=== PATIENT | female | born 1970 | race Caucasian/White ===

== ENCOUNTER 2019-07-23 07:48 | Emergency (ER) | payer BC ==
--- NOTE | 2019-07-23 08:06 | PDOC ---
History of Present Illness - General Chief Complaint: Pain Stated Complaint: LEFT LOWER BACK PAIN Time Seen by Provider: 07/23/19 07:50 - History of Present Illness Initial Comments: 07/23/19 08:37 49 F with no significant PMH presents to ED with 1 day of L flank pain. Pt reports having an aching pain that started yesterday. She states it felt like a muscle soreness but denies any injuries or heavy lifting. This morning in the shower, the pain acutely worsened. She reports 10/10 pain radiating from her L flank towards her groin. The pain has since subsided but pt notes that she occasionally will get waves of severe pain. Endorses nausea without vomiting. Denies F/C. Denies abdominal pain. Denies diarrhea/constipation. No prior h/o kidney stones or pyelo. Past History - Past Medical History Allergies/Adverse Reactions: Allergies Allergy/AdvReac Type Severity Reaction Status Date / Time amoxicillin [From Augmentin] Allergy Verified 07/23/19 07:59 clavulanic acid Allergy Rash Verified 07/23/19 07:59 [From Augmentin] Home Medications: Ambulatory Orders Acetaminophen [Tylenol 8 Hour] 1,950 500s PO ONCE PRN 07/23/19 Review of Systems - Review of Systems Comments:: 07/23/19 08:38 "GENERAL/CONSTITUTIONAL: No fever or chills. No weakness. HEAD, EYES, EARS, NOSE AND THROAT: No change in vision. No ear pain or discharge. No sore throat. CARDIOVASCULAR: No chest pain, no shortness of breath, no loss of consciousness RESPIRATORY: No cough, wheezing, or hemoptysis. GASTROINTESTINAL: No nausea, vomiting, diarrhea or constipation. GENITOURINARY: + L flank pain. No dysuria, frequency, or change in urination. MUSCULOSKELETAL: No joint or muscle swelling or pain. No neck or back pain. SKIN: No rash NEUROLOGIC: No vertigo, no change in strength/sensation. ENDOCRINE: No increased thirst. No abnormal weight change. HEMATOLOGIC/LYMPHATIC: No anemia, easy bleeding, or history of blood clots. ALLERGIC/IMMUNOLOGIC: No hives or skin allergy. *Physical Exam - Physical Exam 07/23/19 08:39 "GENERAL: Awake, alert, and fully oriented, in no acute distress. HEAD: No signs of trauma EYES: PERRLA, EOMI, sclera anicteric, conjunctiva clear ENT: Auricles normal inspection, hearing grossly normal, nares patent, oropharynx clear without exudates. Moist mucosa NECK: Nontender, no stepoffs, Normal ROM, supple, no lymphadenopathy, JVD, or masses LUNGS: Breath sounds equal, clear to auscultation bilaterally. No wheezes, and no crackles HEART: Regular rate and rhythm, normal S1 and S2, no murmurs, rubs or gallops BACK: + L CVAT ABDOMEN: Soft, nontender, normoactive bowel sounds. No guarding, no rebound. No masses EXTREMITIES: Normal range of motion, no edema. No clubbing or cyanosis. No cords, erythema, or tenderness NEUROLOGICAL: Cranial nerves II through XII intact. 5/5 strength and sensation in all extremities, Normal speech, normal gait, normal cerebellar function SKIN: Warm, Dry, normal turgor, no rashes or lesions noted. ED Treatment Course - LABORATORY CBC & Chemistry Diagram: 07/23/19 08:42 07/23/19 08:42 Medical Decision Making - Medical Decision Making 07/23/19 08:39 49 F with L flank pain. Suspect renal colic. Pt with completely benign abdominal exam. No midline back pain to suggest spinal pathology. - Labs, UA - CTAP - IVF, pain control 07/23/19 09:31 Labs, UA, and CT all unremarkable Pt reassessed - states pain has resolved completely Pt is well appearing, with normal vitals. Clinically stable for DC at this time. I discussed the physical exam findings, ancillary test results and final diagnoses with the patient. I answered all of the patient's questions. The patient was satisfied with the care received and felt comfortable with the discharge plan and treatment plan. The patient agrees to follow up with the primary care physician within 24-72 hours. Discharge - Discharge Information Problems reviewed: Yes Clinical Impression/Diagnosis: Flank pain Disposition: HOME - Follow up/Referral - Patient Discharge Instructions Patient Printed Discharge Instructions: DI for Flank Pain Additional Instructions: Your bloodwork and CT scan were all normal today. However, this does not rule out all serious medical problems. Follow up with your primary doctor as soon as possible. You should notify your doctor that you have a cyst on your right kidney that needs to be monitored. If you experience worsening pain, fevers, vomiting, or any other concerning symptoms, return to the ER immediately. - Post Discharge Activity
[2019-07-23 08:07] VITALS: TEMP 98.3; BMI 49.2
[2019-07-23] MEDS ORDERED: ONDANSETRON 4 MG TABLET PO ONE (08:18)
[2019-07-23] MEDS ORDERED: KETOROLAC TROMETHAMINE 30 MG/1 ML VIAL IVPUSH ONE (08:18)
[2019-07-23] MEDS ORDERED: SODIUM CHLORIDE 1,000 ML IV STA (08:18)
[2019-07-23 08:26] LABS: EPITHELIAL CELLS MANY /hpf
[2019-07-23] MEDS ORDERED: ONDANSETRON 4 MG/2 ML VIAL ONE (08:30)
[2019-07-23] MEDS ORDERED: KETOROLAC TROMETHAMINE 15 MG/ML VIAL ONE (08:30)
[2019-07-23 09:03] LABS: BASO % 0.6 % (0-2.0); EOS % 3.6 % (0-4.5); HEMATOCRIT 43.7 % (32.4-45.2); HEMOGLOBIN 13.9 GM/dl (10.7-15.3); LYMPH % 26.3 % (8-40); MCH 29.7 pg (25.7-33.7); MCHC 31.8 g/dl (32.0-36.0); MEAN CELL VOLUME 93.5 fl (80-96); MEAN PLT VOLUME 10.6 fl (7.5-11.1); MONO % 6.5 % (3.8-10.2); PLATELET COUNT 258 K/MM3 (134-434); RBC 4.68 M/mm3 (3.60-5.2); RDW 13.3 % (11.6-15.6); WHITE BLOOD COUNT 6.7 K/mm3 (4.0-10.8)
[2019-07-23 09:12] LABS: ALBUMIN 3.7 g/dl (3.4-5.0); BILIRUBIN,TOTAL 0.4 mg/dl (0.2-1); CALCIUM 8.9 mg/dl (8.5-10); CREATININE 0.9 mg/dl (0.55-1.3); POTASSIUM 4.3 mmol/L (3.5-5.1); TOT PROT 7.7 g/dl (6.4-8.2)
[2019-07-23 09:53] VITALS: BP 135/77; PULSE 58
== END 2019-07-23 09:54 | disposition home or self-care (01) ==
LOC: FER 07:48
PROC: 3E0333Z Introduction of Anti-inflammatory into Peripheral Vein, Percutaneous Approach (ICD-10-PCS; principal; 2019-07-23)
DX: R10.32 Left lower quadrant pain (principal); Z88.8 Allergy status to other drugs, medicaments and biological substances
CPT/HCPCS: 36415; 74176-TC; 80053; 81003; 81015; 83690; 84703; 85025; 87086; 99283-25

== ENCOUNTER 2021-07-11 15:16 | Inpatient (IN) | payer BC ==
[2021-07-11] MEDS ORDERED: SODIUM CHLORIDE 0.9% 500 ML INFUS.BAG IV ONE (17:23)
[2021-07-11] MEDS ORDERED: MAG HYDROX/AL HYDROX/SIMETH 30 ML UNIT-DOSE CUP PO ONE (17:23)
[2021-07-11] MEDS ORDERED: FAMOTIDINE 20 MG/50 ML IVPB 20 MG/50 ML MG IVPB ONE ×2 (17:23→17:30)
[2021-07-11] MEDS ORDERED: ACETAMINOPHEN 1000 MG/100 ML BAG IVPB ONE (17:23)
[2021-07-11] MEDS ORDERED: MAG HYDROX/AL HYDROX/SIMETH 30 ML UNIT-DOSE CUP ONE (17:30)
[2021-07-11] MEDS ORDERED: ACETAMINOPHEN INJECTION 100 ML IVPB ONE (17:30)
[2021-07-11 18:26] LABS: INR 1.37 (0.83-1.09); PROTHROMBIN TIME (PATIENT) 15.4 SEC (9.7-13.0)
[2021-07-11 18:32] LABS: BASO % 0.4 % (0-2.0); EOS % 1.4 % (0-4.5); HEMATOCRIT 40.9 % (32.4-45.2); HEMOGLOBIN 13.7 GM/dL (10.7-15.3); MCH 30.1 pg (25.7-33.7); MCHC 33.5 g/dl (32.0-36.0); MEAN CELL VOLUME 89.9 fl (80-96); MEAN PLT VOLUME 10.5 fl (7.5-11.1); MONO % 7.7 % (3.8-10.2); NEUT % 78.5 % (42.8-82.8); PLATELET COUNT 236 10^3/uL (134-434); RBC 4.55 M/mm3 (3.60-5.2); RDW 13.5 % (11.6-15.6); WHITE BLOOD COUNT 14.8 K/mm3 (4.0-10.0)
[2021-07-11 18:42] LABS: CHLORIDE 102 mmol/L (98-107); SODIUM 139 mmol/L (136-145)
[2021-07-11 18:44] LABS: ANION GAP 9 MMOL/L (8-16); BLOOD UREA NITROGEN 12.5 mg/dL (7-18); CALCIUM 9.1 mg/dL (8.5-10.1); CO2 27 mmol/L (21-32)
[2021-07-11 18:45] LABS: GLUCOSE,RANDOM 88 mg/dL (74-106)
[2021-07-11 18:47] LABS: SGPT/ALT 10 U/L (13-61)
[2021-07-11 18:48] LABS: SGOT/AST 20 U/L (15-37)
[2021-07-11 18:49] LABS: BILIRUBIN,TOTAL 0.6 mg/dL (0.2-1)
[2021-07-11 18:50] LABS: ALK PHOS 88 U/L (45-117)
[2021-07-11] MEDS ORDERED: HEPARIN NA (PORCINE) 5,000 UNITS/ML 1ML VIAL IVPUSH PRN ×2 (19:21)
[2021-07-11] MEDS ORDERED: HEPARIN - 25,000 UNIT in SODIUM CHLORIDE 495 ML IV SCH (19:30)
[2021-07-11] MEDS ORDERED: ENOXAPARIN NA (PORCINE) 120 MG/0.8 ML DISP.SYRIN SQ SCH (22:00)
[2021-07-12 01:14] VITALS: BMI 48.7
[2021-07-12] MEDS: LACTATED RINGERS SOLUTION 1,000 ML/1,000 ML INFUS.BAG IV SCH ×2 (03:15→21:46)
[2021-07-12 08:39] LABS: BLOOD UREA NITROGEN 12.3 mg/dL (7-18); MAGNESIUM 2.5 mg/dL (1.8-2.4)
[2021-07-12 08:40] LABS: CALCIUM 8.3 mg/dL (8.5-10.1)
[2021-07-12 08:41] LABS: PHOSPHOROUS 2.6 mg/dL (2.5-4.9)
[2021-07-12 08:43] LABS: BILIRUBIN,TOTAL 0.5 mg/dL (0.2-1); TOT PROT 6.7 g/dl (6.4-8.2)
[2021-07-12 08:44] LABS: CREATININE 0.9 mg/dL (0.55-1.3)
[2021-07-12 08:45] LABS: ALBUMIN 2.2 g/dl (3.4-5.0)
[2021-07-12 09:43] LABS: HEMATOCRIT 35.8 % (32.4-45.2); HEMOGLOBIN 11.5 GM/dL (10.7-15.3); MCH 29.2 pg (25.7-33.7); MCHC 32.2 g/dl (32.0-36.0); MEAN CELL VOLUME 90.7 fl (80-96); MEAN PLT VOLUME 11.3 fl (7.5-11.1); PLATELET COUNT 209 10^3/uL (134-434); RBC 3.94 M/mm3 (3.60-5.2); RDW 13.5 % (11.6-15.6); WHITE BLOOD COUNT 13.3 K/mm3 (4.0-10.0)
[2021-07-12] MEDS ORDERED: ENOXAPARIN NA (PORCINE) 120 MG/0.8 ML DISP.SYRIN SQ SCH ×2 (10:15→22:00)
[2021-07-12] MEDS ORDERED: ENOXAPARIN 100 MG, ENOXAPARIN 40 MG SQ ONE (10:30)
[2021-07-12] MEDS ORDERED: ENOXAPARIN NA (PORCINE) 100 MG/1 ML DISP.SYRIN SQ ONE ×2 (11:16→21:28)
[2021-07-12] MEDS ORDERED: ENOXAPARIN NA (PORCINE) 40 MG/0.4 ML DISP.SYRIN SQ ONE ×2 (11:17→21:28)
[2021-07-12] MEDS: PANTOPRAZOLE SODIUM 40 MG VIAL IVPUSH SCH (11:20)
[2021-07-12] MEDS: ENOXAPARIN 100 MG, ENOXAPARIN 40 MG SQ SCH (21:44)
[2021-07-12] MEDS: MUPIROCIN 2% TOPICAL OINTMENT FOR DECOLONIZATION NS SCH (21:44)
[2021-07-12] MEDS ORDERED: CHLORHEXIDINE GLUCONATE 4% CLEANSER FOR DECOLONIZATION TP SCH (22:00)
[2021-07-12] MEDS ORDERED: guaiFENesin 200 MG/10 ML 10 ML UNIT-DOSE CUPS PO ONE (22:10)
[2021-07-13 07:26] LABS: BASO % 0.8 % (0-2.0); EOS % 4.7 % (0-4.5); HEMATOCRIT 35.4 % (32.4-45.2); HEMOGLOBIN 11.4 GM/dL (10.7-15.3); LYMPH % 21.7 % (8-40); MCH 29.3 pg (25.7-33.7); MCHC 32.3 g/dl (32.0-36.0); MEAN CELL VOLUME 90.8 fl (80-96); MEAN PLT VOLUME 10.8 fl (7.5-11.1); NEUT % 65.8 % (42.8-82.8); PLATELET COUNT 221 10^3/uL (134-434); RDW 13.3 % (11.6-15.6); WHITE BLOOD COUNT 10.7 K/mm3 (4.0-10.0)
[2021-07-13 07:49] LABS: BLOOD UREA NITROGEN 12.7 mg/dL (7-18); CALCIUM 8.3 mg/dL (8.5-10.1)
[2021-07-13 07:50] LABS: ALBUMIN 2.5 g/dl (3.4-5.0); MAGNESIUM 2.3 mg/dL (1.8-2.4)
[2021-07-13 07:53] LABS: PHOSPHOROUS 3.5 mg/dL (2.5-4.9)
[2021-07-13 07:55] LABS: BILIRUBIN,TOTAL 0.6 mg/dL (0.2-1); TOT PROT 6.4 g/dl (6.4-8.2)
[2021-07-13] MEDS ORDERED: ENOXAPARIN NA (PORCINE) 40 MG/0.4 ML DISP.SYRIN SQ ONE (10:15)
[2021-07-13] MEDS ORDERED: ENOXAPARIN NA (PORCINE) 100 MG/1 ML DISP.SYRIN SQ ONE (10:15)
[2021-07-13] MEDS: ENOXAPARIN 100 MG, ENOXAPARIN 40 MG SQ SCH (10:26)
[2021-07-13] MEDS: PANTOPRAZOLE SODIUM 40 MG VIAL IVPUSH SCH (10:27)
[2021-07-13] MEDS: MUPIROCIN 2% TOPICAL OINTMENT FOR DECOLONIZATION NS SCH (12:27)
[2021-07-13] MEDS: guaiFENesin/D-METHORPHAN HB 10 ML UNIT-DOSE CUPS PO PRN ×2 (15:46→22:46)
[2021-07-13] MEDS ORDERED: CHLORHEXIDINE GLUCONATE 4% CLEANSER FOR DECOLONIZATION TP SCH (22:00)
[2021-07-13] MEDS ORDERED: MUPIROCIN 2% TOPICAL OINTMENT FOR DECOLONIZATION NS SCH (22:00)
[2021-07-13] MEDS: APIXABAN 5 MG TABLET PO SCH (22:40)
[2021-07-14] MEDS: guaiFENesin/D-METHORPHAN HB 10 ML UNIT-DOSE CUPS PO PRN (05:37)
[2021-07-14 08:17] LABS: HEMATOCRIT 34.8 % (32.4-45.2); HEMOGLOBIN 11.7 GM/dL (10.7-15.3); MCH 30.1 pg (25.7-33.7); MCHC 33.6 g/dl (32.0-36.0); MEAN CELL VOLUME 89.5 fl (80-96); MEAN PLT VOLUME 10.1 fl (7.5-11.1); PLATELET COUNT 242 10^3/uL (134-434); RBC 3.89 M/mm3 (3.60-5.2); RDW 13.4 % (11.6-15.6); WHITE BLOOD COUNT 9.5 K/mm3 (4.0-10.0)
[2021-07-14 09:09] LABS: ALBUMIN 2.4 g/dl (3.4-5.0); BLOOD UREA NITROGEN 8.6 mg/dL (7-18); CALCIUM 8.5 mg/dL (8.5-10.1)
[2021-07-14 09:12] LABS: CREATININE 0.8 mg/dL (0.55-1.3)
[2021-07-14 09:14] LABS: BILIRUBIN,TOTAL 0.5 mg/dL (0.2-1); TOT PROT 6.7 g/dl (6.4-8.2)
[2021-07-14] MEDS: MUPIROCIN 2% TOPICAL OINTMENT FOR DECOLONIZATION NS SCH (09:51)
[2021-07-14] MEDS: APIXABAN 5 MG TABLET PO SCH ×2 (09:56→21:53)
[2021-07-14] MEDS: PANTOPRAZOLE SODIUM 40 MG VIAL IVPUSH SCH (09:56)
[2021-07-14] MEDS ORDERED: guaiFENesin/D-M SUGAR-FREE/ACLHOL-FREE 5 ML UNIT DOSE PO PRN (11:00)
[2021-07-14] MEDS: LACTATED RINGERS SOLUTION 1,000 ML/1,000 ML INFUS.BAG IV SCH ×2 (21:53)
[2021-07-15 08:34] LABS: HEMATOCRIT 36.7 % (32.4-45.2); HEMOGLOBIN 11.9 GM/dL (10.7-15.3); MCH 29.4 pg (25.7-33.7); MCHC 32.4 g/dl (32.0-36.0); MEAN CELL VOLUME 90.7 fl (80-96); MEAN PLT VOLUME 10.3 fl (7.5-11.1); PLATELET COUNT 272 10^3/uL (134-434); RBC 4.04 M/mm3 (3.60-5.2); RDW 13.4 % (11.6-15.6); WHITE BLOOD COUNT 8.8 K/mm3 (4.0-10.0)
[2021-07-15 09:06] LABS: CALCIUM 8.5 mg/dL (8.5-10.1)
[2021-07-15 09:07] LABS: ALBUMIN 2.3 g/dl (3.4-5.0); BLOOD UREA NITROGEN 7.9 mg/dL (7-18)
[2021-07-15 09:10] LABS: CREATININE 0.9 mg/dL (0.55-1.3)
[2021-07-15 09:12] LABS: BILIRUBIN,TOTAL 0.5 mg/dL (0.2-1); TOT PROT 6.6 g/dl (6.4-8.2)
[2021-07-15] MEDS: PANTOPRAZOLE SODIUM 40 MG VIAL IVPUSH SCH (10:44)
[2021-07-15] MEDS: APIXABAN 5 MG TABLET PO SCH ×2 (10:44→22:54)
[2021-07-15] MEDS ORDERED: PT OWN MED DRAWER 7, Y5N ONE (22:49)
[2021-07-16 09:07] LABS: HEMOGLOBIN 11.8 GM/dL (10.7-15.3); MCH 29.9 pg (25.7-33.7); MCHC 32.8 g/dl (32.0-36.0); PLATELET COUNT 291 10^3/uL (134-434); RBC 3.96 M/mm3 (3.60-5.2); RDW 13.6 % (11.6-15.6); WHITE BLOOD COUNT 9.4 K/mm3 (4.0-10.0)
[2021-07-16] MEDS ORDERED: PT OWN MED DRAWER 7, Y5N ONE (10:05)
[2021-07-16] MEDS: APIXABAN 5 MG TABLET PO SCH (10:11)
[2021-07-16] MEDS: PANTOPRAZOLE SODIUM 40 MG VIAL IVPUSH SCH (10:12)
[2021-07-16] MEDS ORDERED: ACETAMINOPHEN 325 MG TABLET (FP) PO PRN (13:37)
[2021-07-16 14:41] VITALS: BP 120/60; PULSE 83; TEMP 98.7
[2021-07-16] MEDS: LACTATED RINGERS SOLUTION 1,000 ML/1,000 ML INFUS.BAG IV SCH (15:53)
[2021-07-16] MEDS ORDERED: APIXABAN 5 MG TABLET PO STA (16:24)
== END 2021-07-16 19:22 | disposition home or self-care (01) | DRG 176 ==
LOC: JER 15:16 → JERBED 20:20 → JICU 07-12 00:42 → J7W 07-13 17:37
PROVIDERS: ADMIT Internal Medicine; ATTEND Internal Medicine
DX: I26.99 Other pulmonary embolism without acute cor pulmonale (principal); Z68.42 Body mass index [BMI] 45.0-49.9, adult; I82.432 Acute embolism and thrombosis of left popliteal vein; E66.01 Morbid (severe) obesity due to excess calories; G47.33 Obstructive sleep apnea (adult) (pediatric)
CPT/HCPCS: 36415; 71045-TC-FY; 71275-TC; 80053; 82550; 82553; 83735; 84100; 84484; 85025; 85027; 85610; 85730; 93005; 93010; 93306-TC; 93970-TC; 94010; 94761; 99285-25; C9803-CS; J1644; Q9967; U0003; U0005

== ENCOUNTER 2023-11-25 16:36 | Emergency (ER) | payer BC ==
[2023-11-25 16:46] VITALS: BP 142/89; PULSE 91; RESP 20; TEMP 98.3; BMI 51.6
[2023-11-25 17:29] LABS: HEMATOCRIT 44.3 % (32.4-45.2); HEMOGLOBIN 14.2 G/dL (10.7-15.3); MCHC 32.1 g/dl (32.0-36.0); MEAN CELL VOLUME 93.5 fl (80-96); MEAN PLT VOLUME 9.7 fl (7.5-11.1); PLATELET COUNT 209.9 10^3/uL (134-434); RBC 4.74 10^6/uL (3.60-5.2); RDW 14.1 % (11.6-15.6); WHITE BLOOD COUNT 11.2 10^3/uL (4.0-10.8)
[2023-11-25 17:42] LABS: ALBUMIN 3.7 g/dl (3.4-5.0); BILIRUBIN,TOTAL 0.4 mg/dl (0.2-1); TOT PROT 6.9 g/dl (6.4-8.2)
[2023-11-25 18:41] LABS: PLATELET ESTIMATE ADEQUATE
[2023-11-25] MEDS ORDERED: ACETAMINOPHEN INJECTION 100 ML IVPB ONE (19:13)
[2023-11-25] MEDS: ACETAMINOPHEN 1000 MG/100 ML BAG IVPB ONE (19:16)
[2023-11-25] MEDS ORDERED: DALBAVANCIN HCL 500 MG VIAL (RESTRICTED TO ID ONLY) IVPB ONE (19:18)
[2023-11-25] MEDS: DALBAVANCIN HCL 1,500 MG in DEXTROSE 5%-WATER - 500 ML IVPB ONE (19:35)
[2023-11-25] MEDS ORDERED: KETOROLAC TROMETHAMINE 30 MG/1 ML VIAL ONE (20:08)
[2023-11-25] MEDS: KETOROLAC TROMETHAMINE 30 MG/1 ML VIAL IVPUSH ONE (20:11)
== END 2023-11-25 20:44 | disposition home or self-care (01) ==
LOC: FER 16:36
PROC: 3E03329 Introduction of Other Anti-infective into Peripheral Vein, Percutaneous Approach (ICD-10-PCS; principal; 2023-11-25)
PROC: 3E033NZ Introduction of Analgesics, Hypnotics, Sedatives into Peripheral Vein, Percutaneous Approach (ICD-10-PCS; 2023-11-25)
PROC: 3E0333Z Introduction of Anti-inflammatory into Peripheral Vein, Percutaneous Approach (ICD-10-PCS; 2023-11-25)
DX: L03.115 Cellulitis of right lower limb (principal)
CPT/HCPCS: 36415; 80053; 85027; 87040; 93971-TC; 99284-25; J0131; J0875

== ENCOUNTER 2023-12-15 16:27 | Emergency (ER) | payer BC ==
[2023-12-15 17:01] VITALS: BP 129/78; PULSE 70; RESP 20; TEMP 98.6; BMI 51.5
[2023-12-15] MEDS ORDERED: DALBAVANCIN HCL 500 MG VIAL (RESTRICTED TO ID ONLY) IVPB ONE (17:20)
[2023-12-15] MEDS: DALBAVANCIN HCL 1,500 MG in DEXTROSE 5%-WATER - 500 ML IVPB ONE (17:45)
== END 2023-12-15 18:30 | disposition home or self-care (01) ==
LOC: FER 16:27
DX: L03.115 Cellulitis of right lower limb (principal); L03.116 Cellulitis of left lower limb
CPT/HCPCS: 99284-25; J0875

== ENCOUNTER 2023-12-17 14:12 | Emergency (ER) | payer BC ==
[2023-12-17 14:22] VITALS: BP 146/84; PULSE 74; RESP 20; TEMP 97.9; BMI 52.4
== END 2023-12-17 15:28 | disposition home or self-care (01) ==
LOC: FER 14:12
DX: I89.0 Lymphedema, not elsewhere classified (principal)
CPT/HCPCS: 99283-25

== ENCOUNTER 2023-12-21 12:46 | Inpatient (IN) | payer BC ==
[2023-12-21] MEDS ORDERED: VANCOMYCIN 1,000 MG VIAL (RESTRICTED TO ID ONLY) ONE (13:47)
[2023-12-21] MEDS: CEFEPIME HCL/D5W 1 GM/50 ML BAG IVPB ONE (14:06)
[2023-12-21] MEDS: VANCOMYCIN 1,000 MG in DEXTROSE 5%-WATER - 250 ML IVPB ONE (14:16)
[2023-12-21 14:18] LABS: HEMATOCRIT 44.2 % (32.4-45.2); HEMOGLOBIN 14.5 G/dL (10.7-15.3); MCH 30.6 pg (25.7-33.7); MCHC 32.8 g/dl (32.0-36.0); MEAN CELL VOLUME 93.3 fl (80-96); MEAN PLT VOLUME 10.2 fl (7.5-11.1); PLATELET COUNT 199.3 10^3/uL (134-434); RBC 4.74 10^6/uL (3.60-5.2); RDW 13.8 % (11.6-15.6); WHITE BLOOD COUNT 10.9 10^3/uL (4.0-10.8)
[2023-12-21 14:25] LABS: PLATELET ESTIMATE ADEQUATE
[2023-12-21 14:26] LABS: ALBUMIN 3.8 g/dl (3.4-5.0); BILIRUBIN,TOTAL 0.4 mg/dl (0.2-1); CALCIUM 9.2 mg/dl (8.5-10.1); CREATININE 0.9 mg/dl (0.6-1.3); POTASSIUM 4.3 mmol/L (3.5-5.1); TOT PROT 6.9 g/dl (6.4-8.2)
[2023-12-21 14:51] LABS: ERYTHROCYTE SEDIMENTATION RATE 32 mm/hr (0-30)
[2023-12-21] MEDS ORDERED: IBUPROFEN 600 MG TABLET (FP) PO ONE (15:37)
[2023-12-21] MEDS: IBUPROFEN 600 MG TABLET (FP) PO ONE (15:39)
[2023-12-21 18:03] VITALS: BMI 53.5
[2023-12-21] MEDS: VANCOMYCIN/WATER FOR INJ (PEG) 1,000 MG/200 ML BAG IVPB ONE (19:24)
[2023-12-21] MEDS ORDERED: ALBUTEROL SO4 HFA INHALER IH PRN (21:51)
[2023-12-21] MEDS: CEFEPIME HCL 1 GM VIAL (RESTRICTED TO ID) IVPB SCH (22:12)
[2023-12-21] MEDS: BUDESONIDE/FORMETEROL FUMARATE 160/4.5 mcg INHALER IH SCH (22:16)
[2023-12-21] MEDS: ACETAMINOPHEN 1000 MG/100 ML BAG IVPB ONE (23:12)
[2023-12-22] MEDS: VANCOMYCIN PREMIX 1.75 GM 1,750 MG/350 ML PIGGYBACK IVPB SCH (08:52)
[2023-12-22 08:54] LABS: HEMATOCRIT 45.7 % (32.4-45.2); HEMOGLOBIN 14.2 G/dL (10.7-15.3); MCH 28.8 pg (25.7-33.7); MEAN PLT VOLUME 11.1 fl (7.5-11.1); PLATELET COUNT 209.5 10^3/uL (134-434); RBC 4.91 10^6/uL (3.60-5.2); RDW 14.1 % (11.6-15.6); WHITE BLOOD COUNT 9.1 10^3/uL (4.0-10.8)
[2023-12-22] MEDS: ENOXAPARIN NA (PORCINE) 40 MG/0.4 ML DISP.SYRIN SQ SCH (09:30)
[2023-12-22 09:41] LABS: CALCIUM 9.1 mg/dl (8.5-10.1); CREATININE 0.9 mg/dl (0.6-1.3); MAGNESIUM 2.2 mg/dL (1.8-2.4); PHOSPHOROUS 3.8 (2.5-4.9); POTASSIUM 4.5 mmol/L (3.5-5.1)
[2023-12-22] MEDS: ACETAMINOPHEN 500 MG TABLET (FP) PO PRN (22:04)
[2023-12-23 07:45] LABS: HEMOGLOBIN 14.6 G/dL (10.7-15.3); MCH 29.6 pg (25.7-33.7); MCHC 31.8 g/dl (32.0-36.0); MEAN CELL VOLUME 93.1 fl (80-96); PLATELET COUNT 197.7 10^3/uL (134-434); RBC 4.94 10^6/uL (3.60-5.2); WHITE BLOOD COUNT 9.7 10^3/uL (4.0-10.8)
[2023-12-23 09:01] LABS: CALCIUM 9.4 mg/dl (8.5-10.1); POTASSIUM 4.6 mmol/L (3.5-5.1)
[2023-12-23 10:12] VITALS: BP 141/70; PULSE 71; RESP 18; TEMP 98.6
== END 2023-12-23 12:20 | disposition home or self-care (01) | DRG 603 ==
LOC: FER 12:46 → FM/S 16:17
PROVIDERS: ADMIT Internal Medicine; ATTEND Internal Medicine
DX: L03.115 Cellulitis of right lower limb (principal); Z68.43 Body mass index [BMI] 50.0-59.9, adult; L03.116 Cellulitis of left lower limb; E66.01 Morbid (severe) obesity due to excess calories; Z88.0 Allergy status to penicillin; I89.0 Lymphedema, not elsewhere classified; Z86.718 Personal history of other venous thrombosis and embolism; Z86.711 Personal history of pulmonary embolism; J45.909 Unspecified asthma, uncomplicated
CPT/HCPCS: 36415; 73552-TC-RT-FY; 73590-TC-LT-FY; 73590-TC-RT-FY; 80048; 80053; 83605; 83735; 84100; 84703; 85027; 85651; 86140; 87040; 93971-TC; 94660; 99285-25; J0131; J3370